=== PATIENT | female | born 1975 | race Native Hawaiian/Other Pacific Islander ===

== ENCOUNTER 2018-03-11 22:52 | Outpatient (CLI) | payer SELFPAY ==
[2018-03-11 23:28] VITALS: BP 116/74
== END 2018-03-12 01:25 | disposition home or self-care (01) ==
LOC: TRG 22:52
PROVIDERS: ATTEND Obstetrics & Gynecology
DX: O09.523 Supervision of elderly multigravida, third trimester (principal); O48.0 Post-term pregnancy; Z3A.40 40 weeks gestation of pregnancy
CPT/HCPCS: 59025

== ENCOUNTER 2018-03-18 21:23 | Inpatient (IN) | payer OTHER ==
[2018-03-18] MEDS ORDERED: BRETHINE IVP PRN (23:13)
[2018-03-18] MEDS ORDERED: ePHEDrine SULFATE IV PRN (23:13)
[2018-03-18] MEDS ORDERED: BRETHINE SUB-Q PRN (23:13)
[2018-03-18] MEDS ORDERED: MINERAL OIL PO PRN (23:13)
[2018-03-18] MEDS ORDERED: NARCAN 0.4 MG/1 ML IV PRN (23:13)
[2018-03-18] MEDS ORDERED: XYLOCAINE 2% INFILTRATI ONE (23:13)
--- NOTE | 2018-03-18 23:22 | History and Physical Report ---
History of Present Illness Date of examination: 03/18/18 Date of admission: 03/18/18 21:44 Chief complaint: My water broke at 11:00 this morning. History of present illness: Late entry to care at [facility], course complicated by suspected IUGR and AMA, co-managed with [facility] Past History Past Medical History: no pertinent history Past Surgical History: no surgical history Family/Genetic History: none Social history: no significant social history, - Obstetrical History Expected Date of Delivery: 03/10/18 Actual Gestation: 41 Week(s) 1 Day(s) : 7 Para: 5 Hx # Term Pregnancies: 5 Spontaneous Abortions: 1 Number of Living Children: 5 #1 Gender: Male year: ,001 Method of Delivery: Vaginal Gestational age at delivery: 39 #2 Gender: Female year: ,004 Method of Delivery: Vaginal Gestational age at delivery: 39 #3 Gender: Female year: ,011 Method of Delivery: Vaginal Gestational age at delivery: 39 #4 Infant Gender: Female year: ,014 Method of Delivery: Vaginal Gestational age at delivery: 39 #5 Infant Gender: Female year: ,015 Method of Delivery: Vaginal Gestational age at delivery: 39 Medications and Allergies Allergies Allergy/AdvReac Type Severity Reaction Status Date / Time No Known Allergies Allergy Verified 10/18/15 18:56 Home Medications Medication Instructions Recorded Confirmed Last Taken Type No Known Home Medications [No 10/19/15 10/19/15 Unknown History Reported Home Medications] Active Meds: Active Medications Butorphanol Tartrate (Stadol) 2 mg IV Q2H PRN PRN Reason: Pain , Severe (7-10) Ephedrine Sulfate (Ephedrine Sulfate) 10 mg IV Q2M PRN PRN Reason: Hypotension Lactated Ringer's (Lactated Ringers) 1,000 mls @ 125 mls/hr IV DIRECT MONE Oxytocin/Sodium Chloride (Pitocin/Ns 20 Unit/1000ml Drip) 20 units in 1,000 mls @ 125 mls/hr IV DIRECT MONE Oxytocin/Sodium Chloride (Pitocin/Ns 30 Unit/500ml) 30 units in 500 mls @ 4 mls /hr IV TITR MOEN; Protocol Lidocaine (Xylocaine 2%) 20 ml INFILTRATI ONCE ONE Stop: 03/18/18 23:14 Mineral Oil (Mineral Oil) 30 ml PO QHS PRN PRN Reason: Constipation Naloxone HCl (Narcan 0.4 Mg/1 Ml) 0.1 mg IV Q2MIN PRN PRN Reason: Res Rate </= 8 or 02 SAT < 92% Terbutaline Sulfate (Brethine) 0.25 mg SUB-Q ONCE PRN PRN Reason: Hyperstimulation/Hypertonicity Terbutaline Sulfate (Brethine) 0.25 mg IVP ONCE PRN PRN Reason: Hyperstimulation/Hypertonicity Review of Systems All systems: negative - Vital Signs Vital signs: Vital Signs Pulse BP 87 129/80 03/18/18 21:49 03/18/18 21:49 Temp Pulse Resp BP Pulse Ox 104 H 129/80 97 03/18/18 23:17 03/18/18 21:49 03/18/18 23:17 - Physical Exam Breasts: Positive: normal Cardiovascular: Regular rate Lungs: Positive: Clear to auscultation, Normal air movement Abdomen: Positive: normal appearance, soft, normal bowel sounds Genitourinary (Female): Positive: normal external genitalia, normal perenium Vagina: Positive: other (leaking a large amount of clear fluid) Uterus: Positive: enlarged Anus/Rectum: Positive: normal perianal skin - Obstetrical FHR: category 1 Uterine Contraction Monitor Mode: External Cervical Dilatation: 7.5 Cervical Effacement Percentage: 80 station: -2 Uterine Contraction Pattern: Irregular Uterine Tone Measurement Phase: Resting Uterine Contraction Intensity: Moderate Results All other labs normal. Assessment and Plan A: IUP @ 41 1/7 weeks Category I Tracing Prolonged Ruptured AMA GBS Negative P: Admit to L&D per Routine Orders Pitocin Augmentation
[2018-03-18] MEDS: STADOL IV PRN (23:37)
[2018-03-18 23:43] LABS: Hematocrit 33.4 % (30.3-42.9); Hemoglobin 11.1 gm/dl (10.1-14.3); Mean Corpuscular HGB Conc 33 % (30-34); Mean Corpuscular Hemoglobin 33 pg (28-32); Mean Corpuscular Volume 98 fl (79-97); Platelet Count 185 K/mm3 (140-440); Red Cell Distribution Width 14.7 % (13.2-15.2)
[2018-03-18] MEDS ORDERED: LACTATED RINGERS 1,000 ML IV SCH (23:45)
[2018-03-18] MEDS ORDERED: PITOCin/NS 20 UNIT/1000ML DRIP 20 UNITS/1,000 ML BAG IV SCH (23:45)
[2018-03-18] MEDS ORDERED: PITOCin/NS 30 UNIT/500ML 30 UNITS/500 ML BAG IV SCH (23:45)
[2018-03-19] MEDS: STADOL IV PRN (01:22)
[2018-03-19] MEDS ORDERED: MILK OF MAGNESIA PO PRN (01:28)
[2018-03-19] MEDS ORDERED: LANSINOH TP PRN (01:28)
[2018-03-19] MEDS ORDERED: NORCO 5/325 PO PRN (01:28)
[2018-03-19] MEDS ORDERED: DULCOLAX PR PRN (01:28)
[2018-03-19] MEDS ORDERED: BENADRYL PO PRN (01:28)
--- NOTE | 2018-03-19 01:36 | Procedure Note ---
OB Delivery Note - Delivery Date of Delivery: 03/19/18 (0114) Surgeon: ANA HIGGINBOTHAM Estimated blood loss: 200cc - Vaginal Delivery presentation: vertex Delivery position: OA Intrapartum events: meconium Delivery induction: none Delivery augmentation: pitocin Delivery monitor: external FHT, external uterine Route of delivery: Delivery placenta: spontaneous Delivery cord: 3 umbilical vessels Episiotomy: none Delivery laceration: none Anesthesia: none Delivery comments: of a live 9'6 male infant over a intact perineum under IV pain control with Apgars of 8 and 9 at 0114 on 03/19/2018. Meconium stained fluid observed at delivery; NICU called to delivery. Cord clamped and cut by WENDY Higginbotham and placed on warmer. Spontaneous delivery of placenta complete and intact with Sanchez side presenting at 0121. Fundus is firm and midline located 4 below the U. Lochia is scant. Cord blood collected; placenta discarded. - A at 1 minute: 8 at 5 minutes: 9 Infant Gender: Male (9'6)
[2018-03-19] MEDS ORDERED: SODIUM CHLORIDE FLUSH SYRINGE 10 ML IV PRN (02:00)
[2018-03-19] MEDS: MOTRIN PO SCH ×4 (02:57→23:42)
[2018-03-19 14:02] LABS: Hematocrit 28.1 % (30.3-42.9); Hemoglobin 9.7 gm/dl (10.1-14.3)
[2018-03-20] MEDS: MOTRIN PO SCH (09:12)
--- NOTE | 2018-03-20 12:00 | Progress Note ---
Assessment and Plan A: PPD#1 s/p Stable P: Routine PP care Discharge home today pending peds Subjective - Subjective Date of service: 03/20/18 Principal diagnosis: Patient reports: appetite normal, voiding normally, pain well controlled, flatus , ambulating normally [place]: doing well Objective - Vital Signs Latest vital signs: Vital Signs Temp Pulse Resp BP Pulse Ox 03/20/18 09:20 98.1 F 82 18 129/83 03/20/18 04:00 98.7 F 78 18 108/79 03/19/18 23:30 98.7 F 78 16 114/68 03/19/18 19:30 98.7 F 77 18 120/68 03/19/18 16:02 98.0 F 80 20 123/63 98 Intake and Output 03/19/18 03/20/18 03/20/18 23:59 07:59 15:59 Intake Total 500 300 320 Output Total 400 Balance 100 300 320 Intake: Oral 200 320 Intake, Free Water 300 300 Output: Urine 400 Void 400 Other: Total, Intake Amount 200 320 Total, Output Amount 400 # Voids Void 1 - Exam Breasts: Present: normal Cardiovascular: Present: Regular rate, Normal S1, Normal S2 Lungs: Present: Clear to auscultation, Normal air movement Abdomen: Present: normal appearance, soft, normal bowel sounds. Absent: distention Vulva: both: normal, laceration/episiotomy (N/A) Uterus: Present: firm, fundal height at umbilicus Extremities: Present: normal Deep Tendon Reflex Grade: Normal +2 - Labs Labs: Abnormal lab results 03/19/18 Range/Units 13:29 Hgb 9.7 L (10.1-14.3) gm/dl Hct 28.1 L (30.3-42.9) %
--- NOTE | 2018-03-20 12:01 | Discharge Summary ---
Providers - Providers Date of Admission: 03/18/18 21:44 Date of discharge: 03/20/18 Attending physician: VERITO ZAVALETA MD Primary care physician: VERITO ZAVALETA MD Hospitalization Reason for admission: active labor, rupture of membranes, IUP at term Delivery: Procedure details: See H&P and delivery note Episiotomy: none Laceration: none Other procedures: none complications: none Discharge diagnosis: IUP at term delivered baby: male Condition at discharge: Good Disposition: DC-01 TO HOME OR SELFCARE Plan - Provider Discharge Summary Activity: routine, no sex for 6 weeks, no heavy lifting 4 weeks, no strenuous exercise Diet: routine Instructions: routine Additional instructions: [] Smoking cessation referral if applicable(refer to patient education folder for contact #) [] Refer to [facility] Booklet Call your doctor immediately for: * Fever > 100.5 * Heavy vaginal bleeding ( >1 pad per hour) * Severe persistent headache * Shortness of breath * Reddened, hot, painful area to leg or breast * Drainage or odor from incision. * Keep incision clean and dry at all times and follow doctor's instructions regarding bathing/showering - Follow up plan Follow up: ANA SPENCER CNM [Advanced Practice Nurse] - 6 Weeks
[2018-03-20 17:08] VITALS: BP 119/71
== END 2018-03-20 17:10 | disposition home or self-care (01) | DRG 775 ==
LOC: TRG 21:23 → LD 21:44 → OB 03-19 03:26
PROVIDERS: ADMIT Obstetrics & Gynecology; ATTEND Obstetrics & Gynecology
PROC: 10E0XZZ Delivery of Products of Conception, External Approach (ICD-10-PCS; principal; 2018-03-19)
DX: O77.0 Labor and delivery complicated by meconium in amniotic fluid (principal); Z3A.41 41 weeks gestation of pregnancy; Z37.0 Single live birth
CPT/HCPCS: 36415; 85014; 85018; 85027; 86592; 86850; 86900; 86901; 99211; G0463; J0595; J2590; J7120